=== PATIENT | male | born 1985 | race African-American/Black ===

== ENCOUNTER 2017-08-22 19:54 | Emergency (ER) | payer OTHER ==
[~2017-08-22] VITALS: Ht 180.3 cm; Wt 77.3 kg
[2017-08-22] MEDS ORDERED: PROZ20CA11 PO (20:01)
[2017-08-22 22:46] VITALS: BP 120/85
== END 2017-08-22 22:49 | disposition home or self-care (01) ==
LOC: M ED 19:54
DX: F32.9 Major depressive disorder, single episode, unspecified (principal); T43.225A Adverse effect of selective serotonin reuptake inhibitors, initial encounter; X58.XXXA Exposure to other specified factors, initial encounter; Y92.89 Other specified places as the place of occurrence of the external cause; Z79.899 Other long term (current) drug therapy

== ENCOUNTER 2017-08-24 09:03 | Inpatient (IN) | payer OTHER ==
[~2017-08-24] VITALS: Ht 180.3 cm; Wt 73.0 kg
[~2017-08-24 09:03] MED LIST: PROZ20CA11 PO
[2017-08-24 09:43] LABS: MEAN CORPUSCULAR HEMOGLOBIN 29.4 pg (27.0-33.0); MEAN CORPUSCULAR HGB CONC 34.7 g/dl (32.0-36.5); MEAN CORPUSCULAR VOLUME 84.8 fl (80.0-96.0); PLATELET COUNT, AUTOMATED 311 10^3/uL (150-450); RED CELL DISTRIBUTION WIDTH 13.2 % (11.5-14.5)
[2017-08-24 10:01] LABS: METHADONE URINE NEGATIVE (NEGATIVE)
[2017-08-24 10:12] LABS: ALBUMIN 3.9 GM/DL (3.2-5.2); ALBUMIN/GLOBULIN RATIO 1.05 (1.00-1.93); ALKALINE PHOSPHATASE 47 U/L (45-117); ALT/SGPT 16 U/L (12-78); ANION GAP 6 MEQ/L (8-16); AST/SGOT 15 U/L (7-37); BILIRUBIN,DIRECT 0.3 MG/DL (0.0-0.2); BILIRUBIN,TOTAL 3.3 MG/DL (0.2-1.0); BLOOD UREA NITROGEN 11 MG/DL (7-18); CALCIUM LEVEL 9.1 MG/DL (8.5-10.1); CARBON DIOXIDE LEVEL 30 MEQ/L (21-32); CHLORIDE LEVEL 107 MEQ/L (98-107); CREATININE FOR GFR 1.41 MG/DL (0.70-1.30); GLOMERULAR FILTRATION RATE > 60.0 (>60); GLUCOSE, FASTING 78 MG/DL (70-105); POTASSIUM SERUM 4.2 MEQ/L (3.5-5.1); SODIUM LEVEL 143 MEQ/L (136-145); TOTAL PROTEIN 7.6 GM/DL (6.4-8.2)
[2017-08-24 13:00] VITALS: BP 133/80
[2017-08-24] MEDS ORDERED: FLUO10TA30 PO (13:03)
[2017-08-24] MEDS ORDERED: HYDR50TA70 PO (13:03)
[2017-08-24] MEDS ORDERED: traZODone 25MG PER 1/2 TABLET PO PRN (16:00)
[2017-08-24] MEDS ORDERED: MAALOX 30 ML SUSP *UDC PO PRN (16:00)
[2017-08-24] MEDS ORDERED: MOM 30ML SUSPENSION UDC PO PRN (16:00)
[2017-08-24 18:00] VITALS: BP 140/86
[2017-08-25 06:39] VITALS: BP 109/54
[2017-08-25] MEDS ORDERED: FLUoxetine 20 MG CAP PO SCH (09:00)
--- NOTE | 2017-08-25 09:56 | HPEPDOC ---
[facility] Medical History & Physical Date of Admission Aug 24, 2017 History and Physical PCP: [facility] ATTENDING: Dr. Ari Linares HPI: 31yoM admitted to [facility] for unspecified depressive disorder, being medically examined today. Patient was seen in the emergency department on reporting side effects of Prozac. He was referred to follow up with [facility] regarding further instructions. He returned 08/24/17 reporting SI. No acute medical complaints today. Denies any fevers, chills, weakness, fatigue , MATA, CP, SOB, cough, palpitations, abdominal pain, N/V/D or changes in bowel or bladder habits. 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 Tobacco use: Denies ETOH: States 4-5 drinks per week or less Illicit Drugs: Denies IV Drug Use: Denies Tattoos done unprofessionally: Denies FAMHX: Mother: Alive, well Father: Alive, epilepsy Siblings: Alive, well Children: Alive, well Unexpected deaths due to medical reasons: None. ROS: As noted in HPI, otherwise 11pt ROS of systems reviewed and unremarkable. PE: GEN: 31 yo M, appears stated age. Well-nourished, well developed. No acute distress. Alert and oriented x 3. Pleasant, interactive. HEENT: Normocephalic, atraumatic. Pupils are equal, round, and reactive to light. Extraocular movements are intact. No nystagmus appreciated. Sclera are nonicteric. Conjunctiva without injection. Nose midline. Nasal turbinates without bogginess. EACs both patent BL. TMs both visualized and edgar with good cone of light, no bulging or erythema. No facial asymmetry. Moist mucous membranes. Dentition fair. Pharynx pink and moist, no cobblestoning. Neck supple , trachea midline. No lymphadenopathy or thyromegaly appreciated. CHEST: Regular rate and rhythm, +S1, +S2 LUNGS: Clear to auscultation bilaterally. No wheezes, rales, or rhonchi. Breathing appears symmetric and easy. Patient is speaking in full sentences. No accessory muscle use. ABD: Round, soft, non-tender, non-distended. +Bowel sounds throughout. No rebound or guarding. No costovertebral angle tenderness. EXT: Pulses 2+ bilaterally dorsalis pedis and radial. No lower extremity edema appreciated. SKIN: [place], dry, warm. Capillary refill <2sec. No rashes. NEURO: Alert and oriented x 3. Cranial nerves III-XII are intact. No focal deficits appreciated. EKG: Pending. A&P: 31yoM admitted to [facility] for unspecified depressive disorder, 1. Psych. Plan per Psychiatry. Obtain baseline EKG to assure the safety of psychiatric medications as they can prolong the QT interval. 2. Elevated serum creatinine. Patient states he is eating and drinking better now. Recheck BMP. 3. Follow up with PCP on discharge. 4. Staff member Ed present throughout exam. Vital Signs Vital Signs Date Time Temp Pulse Resp B/P (MAP) Pulse Ox O2 Delivery O2 Flow Rate FiO2 08/25/17 06:39 97.9 52 16 109/54 (72) 08/24/17 13:01 96 Laboratory Data Labs 24H Item Value Date Time White Blood Count 5.0 10^3/uL 08/24/17923 Red Blood Count 5.34 10^6/uL 08/24/17923 Hemoglobin 15.7 g/dl 08/24/17923 Hematocrit 45.3 % 08/24/17923 Mean Corpuscular Volume 84.8 fl 08/24/17923 Mean Corpuscular Hemoglobin 29.4 pg 08/24/17923 Mean Corpuscular Hemoglobin Concent 34.7 g/dl 08/24/17923 Red Cell Distribution Width 13.2 % 08/24/17923 Platelet Count 311 10^3/uL 08/24/17923 Nucleated Red Blood Cells % (auto) 0.0 % 08/24/17923 Sodium Level 143 MEQ/L 08/24/17923 Potassium Level 4.2 MEQ/L 08/24/17923 Chloride Level 107 MEQ/L 08/24/17923 Carbon Dioxide Level 30 MEQ/L 08/24/17923 Anion Gap 6 MEQ/L L 08/24/17923 Blood Urea Nitrogen 11 MG/DL 08/24/17923 Creatinine 1.41 MG/DL H 08/24/17923 Glomerular Filtration Rate > 60.0 08/24/17923 Fasting Glucose 78 MG/DL 08/24/17923 Calcium Level 9.1 MG/DL 08/24/17923 Total Bilirubin 3.3 MG/DL H 08/24/17923 Direct Bilirubin 0.3 MG/DL H 08/24/17923 Aspartate Amino Transf (AST/SGOT) 15 U/L 08/24/17923 Alanine Aminotransferase (ALT/SGPT) 16 U/L 08/24/17923 Alkaline Phosphatase 47 U/L 08/24/17923 Total Protein 7.6 GM/DL 08/24/17923 Albumin 3.9 GM/DL 08/24/17923 Albumin/Globulin Ratio 1.05 08/24/17923 Thyroid Stimulating Hormone (TSH) 0.812 uIU/ML 08/24/17923 Salicylates Level < 1.7 MG/DL L 08/24/17923 Urine Opiates Screen NEGATIVE 08/24/17920 Urine Methadone Screen NEGATIVE 08/24/17920 Acetaminophen Level < 2.0 UG/ML L 08/24/17923 Urine Barbiturates Screen NEGATIVE 08/24/17920 Urine Phencyclidine Screen NEGATIVE 08/24/17920 Urine Amphetamines Screen NEGATIVE 08/24/17920 Urine Benzodiazepines Screen NEGATIVE 08/24/17920 Urine Cocaine Metabolite Screen NEGATIVE 08/24/17920 Urine Cannabinoids Screen NEGATIVE 08/24/17920 Ethyl Alcohol Level 0.005 % 08/24/17923 Home Medications Scheduled (Fluoxetine HCl) 10 Mg Tab, 10 MG PO DAILY Scheduled PRN Hydroxyzine HCl (Hydroxyzine HCl) 50 Mg Tab, 50 MG PO DAILY PRN for ANXIETY Allergies Coded Allergies: No Known Allergies (Unverified , 08/22/17) Georgia Hackett Aug 25, 2017 09:56
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
[2017-08-25] MEDS: ACETAMINOPHEN TAB 650MG DOSE (2X325MG) PO PRN (13:04)
--- NOTE | 2017-08-25 17:39 | ECGEPIP ---
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
[2017-08-25 18:00] VITALS: BP 138/77
[2017-08-26 06:43] VITALS: BP 145/85
[2017-08-26 08:20] LABS: ANION GAP 5 MEQ/L (8-16); BLOOD UREA NITROGEN 10 MG/DL (7-18); CALCIUM LEVEL 9.2 MG/DL (8.5-10.1); CARBON DIOXIDE LEVEL 30 MEQ/L (21-32); CHLORIDE LEVEL 106 MEQ/L (98-107); GLOMERULAR FILTRATION RATE > 60.0 (>60); GLUCOSE, FASTING 91 MG/DL (70-105); POTASSIUM SERUM 4.1 MEQ/L (3.5-5.1); SODIUM LEVEL 141 MEQ/L (136-145)
[2017-08-26] MEDS: CitaloPRAM (CeleXA) 20 MG TAB PO SCH (08:42)
[2017-08-26] MEDS: hydrOXYzine 50 MG TAB PO PRN (08:43)
--- NOTE | 2017-08-26 17:12 | MHIPNPDOC ---
[facility] Progress Note Progress Note DATE OF SERVICE: 08/26/17 HISTORY: "I came because Prozac made me more depressed and my PA told me something like that could happen and on Wednesday I came to the ED and I told them I was not comfortable with the side effects and on Wednesday my PA decreased it and put me on Hydroxyzine for anxiety and insomnia." History of Present Illness HISTORY OF THE PRESENT ILLNESS: As per ED report :" Pt (AD)presented to ED after Pt's (AD) stopped in at Pt's home and found Pt in the position , crying, requesting to go to the hospital, stating didn't want to be alive or here anymore. called 911. According to , have been seperated since do to Pt's adultry issues. spoke with Pt on phone this morning and decided to check on him because his "state of mind was not good". reported Pt has made +SI comments in the past but more often overthe last 3 weeks. Pt has a shotgun and ammo in the home according to . stated made arrangements with her NCO to remove and lock up gun and ammo. 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 Pt reported increased "stress", 2 hrs sleep nightly, denies ETOH abuse. Pt seen at [facility]; Mr. Murillo, every 2 weeks and [facility] for medication management." VITAL SIGNS: See below. NEW TEST RESULTS: See below CURRENT MEDICATIONS: See below. MENTAL STATUS EXAMINATION: Patient is a 31-year old male, who is alert, cooperative, dressed in hospital clothes, good eye contact, good hygiene, fairly groomed, pleasant. Speech: Is Coherent. Language skills are Normal. Thought processes including: Intact Thought content: Perseveres about wanting to be discharged. Abstract reasoning, and computation: Good. Description of associations: Good. Description of abnormal or psychotic thoughts: Denies SI/denies HI, denies thought delusions, denies A/V halllucinations Judgment: Fair Insight: Fair. Orientation: x3 . Recent and remote memory: Intact. Attention span and concentration: Good. Language: Normal. Fund of knowledge: Adequate. Mood: Euthymic. Affect: Euthymic. DIAGNOSES: Major Depressive Disorder, severe. Generalized Anxiety Disorder PTSD ASSESSMENT:Patient is more relaxed, his anxiety levels have decreased, he smiles , he is interactive, not guarded, like he was yesterday. He has a more optimistic perspective of life. He didn't report medications side effects. Will continue on the same medications. MANAGEMENT PLAN: Will continue on the same treatment plan TIME SPENT: 20 minutes. Vital Signs Vital Signs Date Time Temp Pulse Resp B/P (MAP) Pulse Ox O2 Delivery O2 Flow Rate FiO2 08/26/17 06:43 98.6 86 16 145/85 (105) Room Air 08/24/17 13:01 96 Laboratory Data 24H Labs Laboratory Tests 2 08/26/17 07:35: Anion Gap 5L, Glomerular Filtration Rate > 60.0, Blood Urea Nitrogen 10, Creatinine 1.20, Sodium Level 141, Potassium Level 4.1, Chloride Level 106, Carbon Dioxide Level 30, Calcium Level 9.2 CBC/BMP Laboratory Tests 08/26/17 07:35 Calcium Level 9.2 Current Medications Current Medications Acetaminophen (Tylenol Tab) 650 mg Q6HP PRN PO HEADACHE or DISCOMFORT Last administered on 08/25/17 13:04; Start 08/24/17 at 16:00; Stop 09/23/17 at 15 :59 Al Hydrox/Mg Hydrox/Simethicone (Mylanta) 30 ml Q4HP PRN PO HEARTBURN/ INDIGESTION; Start 08/24/17 at 16:00; Stop 09/23/17 at 15:59 Citalopram Hydrobromide (CeleXA) 20 mg DAILY PO Last administered on 08:42; Start 08/26/17 at 09:00; Stop 09/25/17 at 08:59 Fluoxetine HCl (PROzac) 20 mg DAILY PO Last administered on 08/25/17 09:21; Start 08/25/17 at 09:00; Stop 08/25/17 at 10:12; Status DC Home Med (Med Rec Complete!) ASDIRECTED XX ; Start 08/24/17 at 13:15; Stop at 13:15; Status DC Hydroxyzine HCl (Atarax) 50 mg Q6HP PRN PO ANXIETY Last administered on 08:43; Start 08/24/17 at 16:00; Stop 09/23/17 at 15:59 Magnesium Hydroxide (Milk Of Magnesia) 30 ml DAILYPRN PRN PO CONSTIPATION; Start 08/24/17 at 16:00; Stop 09/23/17 at 15:59 Trazodone HCl (Desyrel) 75 mg QHSP PRN PO INSOMNIA Last administered on t 21:18; Start 08/24/17 at 16:00; Stop 09/23/17 at 15:59 Allergies Coded Allergies: No Known Allergies (Unverified , 08/22/17) MCKAYLA KRISHNAN MD Aug 26, 2017 17:11
[2017-08-26 21:17] VITALS: BP 138/80
[2017-08-27 06:15] VITALS: BP 113/51
[2017-08-27] MEDS: CitaloPRAM (CeleXA) 20 MG TAB PO SCH (08:09)
[2017-08-27] MEDS: hydrOXYzine 50 MG TAB PO PRN (08:09)
[2017-08-27 18:00] VITALS: BP 119/77
[2017-08-28 06:49] VITALS: BP 137/76
[2017-08-28] MEDS: CitaloPRAM (CeleXA) 20 MG TAB PO SCH (08:34)
[2017-08-28] MEDS: hydrOXYzine 50 MG TAB PO PRN (08:35)
[2017-08-28 18:00] VITALS: BP 104/56
--- NOTE | 2017-08-28 18:02 | MHIPN ---
DATE: 08/28/2017 CHIEF COMPLAINT: Says feels better. SUBJECTIVE: Seen for followup in the presence of staff. Says feels better. Is less anxious, less depressed. Says sleep has improved. MENTAL STATUS EXAMINATION: Neat and cooperative. He is coherent. Affect is broad. No evidence of any thoughts of harming himself or anyone else, nor of any psychosis. Cognition grossly intact. Judgment is good. Insight improved. ASSESSMENT: Major depressive disorder. PLAN: Continue current care, observations, and encourage participation in activities in the unit.
[2017-08-28] MEDS: ACETAMINOPHEN TAB 650MG DOSE (2X325MG) PO PRN (20:51)
[2017-08-29 06:37] VITALS: BP 134/74
[2017-08-29] MEDS: CitaloPRAM (CeleXA) 20 MG TAB PO SCH (08:34)
[2017-08-29] MEDS: ACETAMINOPHEN TAB 650MG DOSE (2X325MG) PO PRN (08:34)
[2017-08-29 18:00] VITALS: BP 125/69
--- NOTE | 2017-08-29 19:50 | MHIPNPDOC ---
[facility] Progress Note Progress Note DATE OF SERVICE: 08/27/17 HISTORY: "I came because Prozac made me more depressed and my PA told me something like that could happen and on Wednesday I came to the ED and I told them I was not comfortable with the side effects and on Wednesday my PA decreased it and put me on Hydroxyzine for anxiety and insomnia." History of Present Illness HISTORY OF THE PRESENT ILLNESS: As per ED report :" Pt (AD)presented to ED after Pt's (AD) stopped in at Pt's home and found Pt in the position , crying, requesting to go to the hospital, stating didn't want to be alive or here anymore. called 911. According to , have been seperated since do to Pt's adultry issues. spoke with Pt on phone this morning and decided to check on him because his "state of mind was not good". reported Pt has made +SI comments in the past but more often overthe last 3 weeks. Pt has a shotgun and ammo in the home according to . stated made arrangements with her NCO to remove and lock up gun and ammo. 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 Pt reported increased "stress", 2 hrs sleep nightly, denies ETOH abuse. Pt seen at [facility]; Mr. Murillo, every 2 weeks and [facility] for medication management." VITAL SIGNS: See below. NEW TEST RESULTS: See below CURRENT MEDICATIONS: See below. MENTAL STATUS EXAMINATION: Patient is a 31-year old male, who is alert, cooperative, dressed in hospital clothes, good eye contact, good hygiene, fairly groomed, pleasant. Speech: Is normal in rate, tone and volume Language skills are good Thought processes including: Intact Thought content: Perseveres about wanting to be discharged. Abstract reasoning, and computation: Good. Description of associations: Good. Description of abnormal or psychotic thoughts: Denies SI/denies HI, denies thought delusions, denies A/V halllucinations Judgment: Good Insight: Good Orientation: x3 . Recent and remote memory: Intact. Attention span and concentration: Good. Language: Normal. Fund of knowledge: Adequate. Mood: Euthymic. Affect: Euthymic. DIAGNOSES: Major Depressive Disorder, severe. Generalized Anxiety Disorder PTSD ASSESSMENT:Patient continues to be relaxed, pleasant and cooperative. 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 He showing I will response to medications and he denies side effects MANAGEMENT PLAN: Will continue on the same treatment plan TIME SPENT: 20 minutes. Vital Signs Vital Signs Date Time Temp Pulse Resp B/P (MAP) Pulse Ox O2 Delivery O2 Flow Rate FiO2 08/29/17 06:37 99.0 93 18 134/74 (94) 08/28/17 06:49 Room Air 08/24/17 13:01 96 Current Medications Current Medications Acetaminophen (Tylenol Tab) 650 mg Q6HP PRN PO HEADACHE or DISCOMFORT Last administered on 08/29/17 08:34; Start 08/24/17 at 16:00; Stop 09/23/17 at 15: 59 Al Hydrox/Mg Hydrox/Simethicone (Mylanta) 30 ml Q4HP PRN PO HEARTBURN/ INDIGESTION; Start 08/24/17 at 16:00; Stop 09/23/17 at 15:59 Citalopram Hydrobromide (CeleXA) 20 mg DAILY PO Last administered on 08/29/17 08:34; Start 08/26/17 at 09:00; Stop 09/25/17 at 08:59 Fluoxetine HCl (PROzac) 20 mg DAILY PO Last administered on 08/25/17 09:21; Start 08/25/17 at 09:00; Stop 08/25/17 at 10:12; Status DC Home Med (Med Rec Complete!) ASDIRECTED XX ; Start 08/24/17 at 13:15; Stop at 13:15; Status DC Hydroxyzine HCl (Atarax) 50 mg Q6HP PRN PO ANXIETY Last administered on 08:35; Start 08/24/17 at 16:00; Stop 09/23/17 at 15:59 Magnesium Hydroxide (Milk Of Magnesia) 30 ml DAILYPRN PRN PO CONSTIPATION; Start 08/24/17 at 16:00; Stop 09/23/17 at 15:59 Trazodone HCl (Desyrel) 75 mg QHSP PRN PO INSOMNIA Last administered on 11/28/ 17at 21:18; Start 08/24/17 at 16:00; Stop 09/23/17 at 15:59 Allergies Coded Allergies: No Known Allergies (Unverified , 08/22/17) MCKAYLA KRISHNAN MD Aug 29, 2017 19:50
[2017-08-29] MEDS: hydrOXYzine 50 MG TAB PO PRN (22:56)
[2017-08-30 07:00] VITALS: BP 125/65
[2017-08-30] MEDS: hydrOXYzine 50 MG TAB PO PRN (08:56)
[2017-08-30] MEDS: CitaloPRAM (CeleXA) 20 MG TAB PO SCH (08:56)
[2017-08-30] MEDS ORDERED: TRAZ25TA PO (10:13)
[2017-08-30] MEDS ORDERED: CELE20TA PO (10:13)
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
== END 2017-08-30 10:40 | disposition home or self-care (01) | DRG 885 ==
LOC: M ED 09:03 → M ED INP 12:15 → M PSY 13:00
PROVIDERS: ADMIT Psychiatry & Neurology Psychiatry; ATTEND Psychiatry & Neurology Psychiatry
DX: F32.2 Major depressive disorder, single episode, severe without psychotic features (principal); F41.1 Generalized anxiety disorder; F43.10 Post-traumatic stress disorder, unspecified; Z81.3 Family history of other psychoactive substance abuse and dependence; Z79.899 Other long term (current) drug therapy

== ENCOUNTER 2017-10-27 17:23 | Emergency (ER) | payer OTHER ==
[~2017-10-27 17:23] MED LIST changes: +ONDANSETRON 4 MG ORAL DISINTEGRATING TAB (S0181) As Ordered; -PROZ20CA11 PO
[2017-10-27] MEDS: ONDANSETRON 4 MG ORAL DISINTEGRATING TAB (S0181) PO (17:55)
== END 2017-10-27 18:20 | disposition home or self-care (01) ==
LOC: M ED 17:23
DX: K52.9 Noninfective gastroenteritis and colitis, unspecified (principal)
CPT/HCPCS: 99282